=== PATIENT | male | born 1970 | race American Indian/Alaskan Native ===

== ENCOUNTER 2020-08-11 11:51 | Emergency (ER) | payer MEDICAID ==
[~2020-08-11] VITALS: Ht 193 cm; Wt 69.5 kg
[2020-08-11] MEDS ORDERED: CEPH250T PO (12:50)
[2020-08-11 13:30] VITALS: BP 124/71
== END 2020-08-11 13:37 | disposition home or self-care (01) ==
LOC: ER 11:53
DX: L03.115 Cellulitis of right lower limb (principal); F17.200 Nicotine dependence, unspecified, uncomplicated; Z72.89 Other problems related to lifestyle; Z79.2 Long term (current) use of antibiotics
CPT/HCPCS: 99283